=== PATIENT | male | born 1985 | race Hispanic/Latino ===

== ENCOUNTER → 2025-06-02 | Outpatient (CLI) | payer OTHER, SELFPAY ==
--- OUTSIDE RECORDS SUMMARY | 2025-06-02 09:13 | XMS RPT_ITS | CCD ---
Author Organization [facility] Care Team Providers Care Forging Press Operator Name Role Phone JANA CAMARGO, MARCUS Bauer Primary Care Physician [phone] FRANCISCA DE SOUZA, TIEN Fernandez Primary Care Physi nima FRANCISCA DE SOUZA, TIEN Fernandez Attending Un available FRANCISCA ACUÑA-NARA, TIEN Fernandez Primary Care Un available TORSTEN CAMARGO, THADDEUS Attending Unavaila ble FRANCISCA DE SOUZA, TIEN A Primary Care Un available TORSTEN CAMARGO, THADDEUS Attending Unavaila ble FRANCISCA ACUÑA-NARA, TIEN A Primary Care Un available TORSTEN CAMARGO, THADDEUS Attending Unavaila ble FRANCISCA DE SOUZA, TIEN A Primary Care Un available TORSTEN CAMARGO, THADDEUS Attending Unavaila ble FRANCISCA ACUÑA-NARA, TIEN A Primary Care Un available FRANCISCA DE SOUZA, TIEN A Primary Care Un available TORSTEN CAMARGO, THADDEUS Attending Unavaila rubén Medications Current Medications Medication Drug Class(es) Dates Sig (Normalized) Sig (Original) 0.5 ML tirzepatide 15 MG/ML Auto-Injector [Mounjaro] (1 source) Start: 01-08-2025 inject 1 dose by subcutaneous injection every week Mounjaro 7.5 mg/0.5 mL subcutaneous solution Dose : 7.5 mg =, Subcutaneous, qWeek, rotate injection sites, # 2 mL, 3 Refill(s), Pharmacy: [facility], 167, cm, 01/04/25 15:53:00 EST, Height, kg, 01/04/25 15:53:00 EST, Dosing Weight Start Date: 01/08/25 Status: Ordered Quantity: 2.0 Unit: mL Repeat number: 4 3 ML semaglutide 2.68 MG/ML Pen Injector [Ozempic] (2 sources) Start: 10-03-2024 inject 1 dose by subcutaneous injection every week Ozempic 8 mg/3 mL (2 mg dose) subcutaneous solution Dose : 2 mg =, Subcutaneous, qWeek, in the abdomen, thigh, or upper arm, # 3 mL, 4 Refill(s), Pharmacy: [facility], 167, cm, 10/03/24 15:51:00 EST, Height, kg, 10/03/24 15:51:00 EST, Dosing Weight Start Date: 10/03/24 Status: Ordered Quantity: 3.0 Unit: mL Repeat number: 5 acetaminophen 500 mg oral tablet (5 sources) Start: 08-20-2022 acetaminophen 500 mg oral tablet Dose : 1,000 mg = 2 tab(s), Oral, TID, PRN pain or fever, 0 Refill(s) Start Date: 08/20/22 Status: Ordered Repeat number: 1 acyclovir 800 mg oral tablet (1 source) Herpesvirus Nucleoside Analog DNA Polymerase Inhibitor, Herpes Simplex Virus Nucleoside Analog DNA Polymerase Inhibitor, Herpes Zoster Virus Nucleoside Analog DNA Polymerase Inhibitor Start: 09-15-2023 End: 09-25-2023 acyclovir 800 mg oral tablet Dose : 800 mg = 1 tab(s), Oral, TID, X 5 day(s), # 15 tab(s), 1 Refill(s), 09/25/23 4:20:00 PM EDT, Pharmacy: [facility] #[id number], Genital herpes, 167, cm, 09/15/23 15:52:00 EDT, Height, kg, 09/15/23 15:52:00 EDT, Dosing Weight Start Date: 09/15/23 Stop Date: 09/25/23 Status: Ordered betamethasone 0.5 mg/ml / clotrimazole 10 mg/ml topical cream (1 source) Azole Antifungal, Corticosteroid Start: 09-15-2023 End: 10-13-2023 betamethasone-clot rimazole 0.05%-1% topical cream Apply 1 sudha, Topical, BID, for 2 weeks then take 1 week off, may repeat if needed, X 14 day(s), # 45 gram(s), 1 Refill(s), Pharmacy: [facility] #[id number], Cream, 167, cm, 09/15/23 15:52:00 EDT, Height, 75.1, kg, 09/15/23 15:52:00 EDT, Dosing Weight Start Date: 09/15/23 Stop Date: 10/13/23 Status: Ordered DME MISCellaneous (3 sources) Start: 07-04-2024 DME MISCellaneous See Instructions, freestyle clyde 3 sensors 1 sensor every 14 days #2kits for 28 days and 3 refills E11.65., # 2 EA, 3 Refill(s), Pharmacy: [facility], 167, cm, 06/29/24 15:52:00 EDT, Height, 77.31, kg, 06/29/24 15:52:00 EDT, Dosing Weight Start Date: 07/04/24 Status: Ordered Quantity: 2.0 Unit: EA Repeat number: 4 Start: 01-26-2024 DME MISCellane ous See Instructions, freestyle clyde 3 sensors 1 sensor every 14 days #2kits for 28 days and 3 refills E11.65., # 2 EA, 3 Refill(s), Pharmacy: [facility] #[id number], 167, cm, 12/02/23 14:10:00 EST, Height, 78.6, kg, 12/02/23 14:10:00 EST, Dosing Weight Start Date: 01/26/24 Status: Ordered fluconazole 150 mg oral tablet (1 source) Azole Antifungal Start: 09-15-2023 End: 09-21-2023 Diflucan 150 mg oral tablet Dose : 150 mg = 1 tab(s), Oral, Every other day, X 6 day(s), # 3 tab(s), 0 Refill(s), 09/21/23 4:19:00 PM EDT, [facility][id number][facility], cm, 09/15/23 15:52:00 EDT, Height, 75.1, kg, 09/15/23 15:52:00 EDT, Dosing Weight Start Date: 09/15/23 Stop Date: 09/21/23 Status: Ordered fluticasone propionate 0.05 mg/actuat metered dose nasal spray (1 source) Corticosteroid Start: 03-13-2024 End: 09-09-2024 take 50 ug nasal route once daily in the morning Flonase 50 mcg/inh nasal spray 50 mcg Dose = 1 spray(s), Nostril, each, qAM, # 16 gram(s), 5 Refill(s), Pharmacy: [facility], Allergic rhinitis, seasonal, 167, cm, 03/13/24 15:13:00 EDT, Height, kg, 03/13/24 15:13:00 EDT, Dosing Weight Start Date: 03/13/24 Stop Date: 09/09/24 Status: Ordered FreeStyle Lcyde 3+ Sensors (2 sources) Start: 10-23-2024 FreeStyle Libr e 3+ Sensors See Instructions, Place once sensor to the back of the upper arm every 15 days. Use reader or phone sudha for daily blood sugar checks. 1 month supply, # 2 EA, 3 Refill(s), Pharmacy: [facility], 167, cm, 10/13/24 16:34:00 EST, Height, 81.3, kg, 10/13/24 16:34:00 EST, Dosing Weight Start Date: 10/23/24 Status: Ordered Quantity: 2.0 Unit: EA Repeat number: 4 glimepiride 4 mg oral tablet (3 sources) Sulfonylurea Start: 07-15-2023 End: 01-11-2024 Amaryl 4 mg oral tablet Dose : 8 mg = 2 tab(s), Oral, qDay, # 180 tab(s), 1 Refill(s), Pharmacy: [facility] #[id number], Uncontrolled type 2 diabetes mellitus with hyperglycemia, 167, cm, 07/15/23 14:53:00 EDT, Height, kg, 07/15/23 14:53:00 EDT, Dosing Weight Start Date: 07/15/23 Stop Date: 01/11/24 Status: Ordered Start: 03-12-2022 Amaryl 4 mg or al tablet Dose : 4 mg = 1 tab(s), Oral, qDay, # 90 tab(s), 1 Refill(s), Pharmacy: [facility] 168, cm, 03/12/22 14:25:00 EDT, Height, kg, 03/12/22 14:25:00 EDT, Dosing Weight Start Date: 03/12/22 Status: Ordered Start: 11-06-2020 Amaryl 4 mg or al tablet Dose : 4 mg = 1 tab(s), Oral, BID, # 180 tab(s), 3 Refill(s), Pharmacy: [facility], 167, cm, 11/06/20 16:05:00 EST, Height, kg, 11/06/20 16:05:00 EST, Dosing Weight Start Date: 11/06/20 Status: Ordered 3 ml insulin glargine 100 unt/ml pen injector (1 source) Insulin Analog Start: 03-15-2024 End: 06-13-2024 inject 1 dose by subcutaneous injection once daily Lantus Solostar Pen 100 units/mL 3 mL Pen Dose : 20 unit(s) =, Subcutaneous, qDay, rotate injection sites increase insulin by 2 units every 2-3 days until goal blood sugar of 90-150 is consistently reached. Max 80 units., # 2 EA, 2 Refill(s), Pharmacy: [facility], Uncontrolled diabetes mellitus, 167, cm, 03/13/24 15:13:00 EDT, Height, kg, 03/13/24 15:13:00 EDT, Dosing Weight Start Date: 03/15/24 Stop Date: 06/13/24 Status: Ordered insulin isophane, human 70 unt/ml / insulin, regular, human 30 unt/ml injectable suspension (1 source) Insulin Start: 08-25-2023 insulin isophane-insulin regular human recombinant [NovoLIN] 70-30 units/mL subcutaneous suspension Dose : 20 unit(s) =, Subcutaneous, BIDAC, # 10 mL, 1 Refill(s), Pharmacy: [facility] #[id number], 167, cm, 08/17/23 14:10:00 EDT, Height, kg, 08/17/23 14:10:00 EDT, Dosing Weight Start Date: 08/25/23 Status: Ordered 3 ml insulin lispro 50 unt/ml / insulin lispro protamine, human 50 unt/ml pen injector (3 sources) Insulin Analog Start: 10-23-2024 HumaLOG Mix 50 /50 KwikPen 3 mL PEN See Instructions, Inject TID AC - 20 units with breakfast, 20 units with lunch, 25 units with dinner, # 15 mL, 1 Refill(s), PEN, Pharmacy: [facility], 167, cm, 10/13/24 16:34:00 EST, Height, kg, 10/13/24 16:34:00 EST, Dosing Weight Start Date: 10/23/24 Status: Ordered Quantity: 15.0 Unit: mL Repeat number: 2 Start: 03-23-2024 HumaLOG Mix 50 /50 KwikPen 3 mL PEN Dose : 20 unit(s) =, Subcutaneous, TIDAC, # 15 mL, 1 Refill(s), PEN, Pharmacy: [facility], 167, cm, 03/23/24 16:09:00 EDT, Height, kg, 03/23/24 16:09:00 EDT, Dosing Weight Start Date: 03/23/24 Status: Ordered lisinopril 2.5 mg oral tablet (6 sources) Angiotensin Converting Enzyme Inhibitor Start: 06-19-2024 End: 06-14-2025 lisinopril 2.5 mg oral tablet Dose : 2.5 mg = 1 tab(s), Oral, qDay, # 90 tab(s), 3 Refill(s), Pharmacy: [facility], 167, cm, 06/13/24 16:08:00 EDT, Height, kg, 06/13/24 16:08:00 EDT, Dosing Weight Start Date: 06/19/24 Stop Date: 06/14/25 Status: Ordered Quantity: 90.0 Unit: tab(s) Repeat number: 4 Start: 06-16-2023 End: 06-10-2024 lisinopril 2.5 mg oral table t Dose : 2.5 mg = 1 tab(s), Oral, qDay, # 90 tab(s), 3 Refill(s), Pharmacy: [facility] #[id number], 167, cm, 06/16/23 15:26:00 EDT, Height, kg, 06/16/23 15:26:00 EDT, Dosing Weight Start Date: 06/16/23 Stop Date: 06/10/24 Status: Ordered Start: 07-17-2022 lisinopril 2.5 mg oral tablet Dose : 2.5 mg = 1 tab(s), Oral, qDay, # 30 tab(s), 11 Refill(s), Pharmacy: [facility] #[id number], 162.6, cm, 07/17/22 16:35:00 EDT, Height, kg, 07/17/22 16:35:00 EDT, Dosing Weight Start Date: 07/17/22 Status: Ordered Start: 06-04-2021 lisinopril 2.5 mg oral tablet Dose : 2.5 mg = 1 tab(s), Oral, qDay, # 30 tab(s), 11 Refill(s), [facility]acy: [facility] [facility], 167, cm, 06/04/21 16:42:00 EDT, Height, kg, 06/04/21 16:42:00 EDT, Dosing Weight Start Date: 06/04/21 Status: Ordered metFORMIN hydrochloride 1000 mg oral tablet (6 sources) Biguanide Start: 03-17-2024 metFORMIN 1000 mg oral tablet (IR) Dose : 1,000 mg = 1 tab(s), Oral, BID, # 180 tab(s), 3 Refill(s), Pharmacy: [facility], 167, cm, 03/13/24 15:13:00 EDT, Height, kg, 03/13/24 15:13:00 EDT, Dosing Weight Start Date: 03/17/24 Status: Ordered Quantity: 180.0 Unit: tab(s) Repeat number: 4 Start: 06-16-2023 metFORMIN 1000 mg oral tablet (IR) Dose : 1,000 mg = 1 tab(s), Oral, BID, # 180 tab(s), 3 Refill(s), Pharmacy: [facility] #[id number], 167, cm, 06/16/23 15:26:00 EDT, Height, kg, 06/16/23 15:26:00 EDT, Dosing Weight Start Date: 06/16/23 Status: Ordered Start: 07-17-2022 metFORMIN 1000 mg oral tablet (IR) Dose : 1,000 mg = 1 tab(s), Oral, BID, # 180 tab(s), 3 Refill(s), Pharmacy: [facility] #[id number], 162.6, cm, 07/17/22 16:35:00 EDT, Height, kg, 07/17/22 16:35:00 EDT, Dosing Weight Start Date: 07/17/22 Status: Ordered Start: 08-06-2021 metFORMIN 1000 mg oral tablet (IR) Dose : 1,000 mg = 1 tab(s), Oral, BID, # 180 tab(s), 3 Refill(s), [facility], 167, cm, 06/04/21 16:42:00 EDT, Height, kg, 08/06/21 16:34:00 EDT, Dosing Weight Start Date: 08/06/21 Status: Ordered omeprazole 20 mg delayed release oral capsule (4 sources) Proton Pump Inhibitor Start: 01-10-2025 omeprazo le 20 mg oral delayed release capsule Dose : 20 mg = 1 cap(s), Oral, qDay, # 90 cap(s), 3 Refill(s), Pharmacy: [facility], 167, cm, 01/04/25 15:53:00 EST, Height, kg, 01/04/25 15:53:00 EST, Dosing Weight Start Date: 01/10/25 Status: Ordered Quantity: 90.0 Unit: cap(s) Repeat number: 4 Start: 09-20-2024 omeprazole 20 mg oral delayed release tablet Dose : 20 mg = 1 tab(s), Oral, qDay, # 30 tab(s), 3 Refill(s), Pharmacy: [facility], 167, cm, 08/17/24 15:01:00 EDT, Height, kg, 08/17/24 15:01:00 EDT, Dosing Weight Start Date: 09/20/24 Status: Ordered Quantity: 30.0 Unit: tab(s) Repeat number: 4 Start: 01-26-2024 omeprazole 20 mg oral delayed release tablet Dose : 20 mg = 1 tab(s), Oral, qDay, # 30 tab(s), 3 Refill(s), Pharmacy: [facility] #[id number], 167, cm, 12/02/23 14:10:00 EST, Height, kg, 12/02/23 14:10:00 EST, Dosing Weight Start Date: 01/26/24 Status: Ordered Start: 08-17-2023 omeprazole 20 mg oral delayed release tablet Dose : 20 mg = 1 tab(s), Oral, qDay, # 30 tab(s), 3 Refill(s), Pharmacy: [facility] #[id number], 167, cm, 08/17/23 14:10:00 EDT, Height, kg, 08/17/23 14:10:00 EDT, Dosing Weight Start Date: 08/17/23 Status: Ordered pioglitazone 15 mg oral tablet (5 sources) Peroxisome Proliferator Receptor alpha Agonist, Peroxisome Proliferator Receptor gamma Agonist, Thiazolidinedione Start: 08-23-2024 End: 02-19-2025 pioglitazone 15 mg oral tablet Dose : 15 mg = 1 tab(s), Oral, Daily, # 90 tab(s), 1 Refill(s), Pharmacy: [facility], 167, cm, 08/17/24 15:01:00 EDT, Height, kg, 08/17/24 15:01:00 EDT, Dosing Weight Start Date: 08/23/24 Stop Date: 02/19/25 Status: Ordered Quantity: 90.0 Unit: tab(s) Repeat number: 2 Start: 03-09-2024 pioglitazone 1 5 mg oral tablet Dose : 15 mg = 1 tab(s), Oral, Daily, # 30 tab(s), 2 Refill(s), Pharmacy: [facility], 167, cm, 03/09/24 15:38:00 EDT, Height, kg, 03/09/24 15:38:00 EDT, Dosing Weight Start Date: 03/09/24 Status: Ordered Start: 08-06-2022 Actos 30 mg or al tablet Dose : 30 mg = 1 tab(s), Oral, qDay, # 30 tab(s), 11 Refill(s), Pharmacy: [facility] #[id number], 162.6, cm, 08/06/22 15:49:00 EDT, Height, kg, 08/06/22 15:49:00 EDT, Dosing Weight Start Date: 08/06/22 Status: Ordered Start: 01-26-2022 Actos 30 mg or al tablet Dose : 30 mg = 1 tab(s), Oral, qDay, # 30 tab(s), 11 Refill(s), Pharmacy: [facility] 170, cm, 01/18/22 16:15:00 EST, Height, kg, 12/09/21 16:15:00 EST, Dosing Weight Start Date: 01/26/22 Status: Ordered rosuvastatin calcium 20 mg oral tablet (2 sources) HMG-CoA Reductase Inhibitor Start: 11-23-2024 End: 05-22-2025 rosuvastatin 20 mg oral tablet Dose : 20 mg = 1 tab(s), Oral, Daily, # 90 tab(s), 1 Refill(s), Pharmacy: [facility], 167, cm, 10/13/24 16:34:00 EST, Height, kg, 10/13/24 16:34:00 EST, Dosing Weight Start Date: 11/23/24 Stop Date: 05/22/25 Status: Ordered Quantity: 90.0 Unit: tab(s) Repeat number: 2 Start: 03-13-2024 End: 06-11-2024 rosuvastatin 20 mg oral tabl et Dose : 20 mg = 1 tab(s), Oral, Daily, # 90 tab(s), 0 Refill(s), Pharmacy: [facility], HLD (hyperlipidemia), 167, cm, 03/13/24 15:13:00 EDT, Height, kg, 03/13/24 15:13:00 EDT, Dosing Weight Start Date: 03/13/24 Stop Date: 06/11/24 Status: Ordered sildenafil 20 mg oral tablet (1 source) Phosphodiesterase 5 Inhibitor Start: 02-07-2020 sildenafil 20 mg ora l tablet See Instructions, 1 up to 5 tablets at a time daily as needed, # 30 tab(s), 3 Refill(s), Pharmacy: [facility], 168, cm, 02/07/20 16:20:00 EDT, Height, kg, 02/07/20 16:20:00 EDT, Dosing Weight Start Date: 02/07/20 Status: Ordered Vitamin B12 1000 mcg oral tablet (3 sources) Start: 07-26-2024 Vitamin B12 10 00 mcg oral tablet Dose : 1,000 mcg = 1 tab(s), Oral, qDay, # 90 tab(s), 3 Refill(s), Pharmacy: [facility], 167, cm, 06/29/24 15:52:00 EDT, Height, kg, 06/29/24 15:52:00 EDT, Dosing Weight Start Date: 07/26/24 Status: Ordered Quantity: 90.0 Unit: tab(s) Repeat number: 4 Start: 12-02-2023 Vitamin B12 10 00 mcg oral tablet Dose : 1,000 mcg = 1 tab(s), Oral, qDay, # 90 tab(s), 1 Refill(s), Pharmacy: [facility] #[id number], 167, cm, 12/02/23 14:10:00 EST, Height, kg, 12/02/23 14:10:00 EST, Dosing Weight Start Date: 12/02/23 Status: Ordered Vitamin D3 1250 mcg (50,000 intl units) oral capsule (3 sources) Start: 09-13-2024 Vitamin D3 125 0 mcg (50,000 intl units) oral capsule Dose : 1,250 mcg = 1 cap(s), Oral, qWeek, # 12 cap(s), 3 Refill(s), Pharmacy: [facility], 167, cm, 08/17/24 15:01:00 EDT, Height, kg, 08/17/24 15:01:00 EDT, Dosing Weight Start Date: 09/13/24 Status: Ordered Quantity: 12.0 Unit: cap(s) Repeat number: 4 Start: 12-02-2023 Vitamin D3 125 0 mcg (50,000 intl units) oral capsule Dose : 1,250 mcg = 1 cap(s), Oral, qWeek, # 12 cap(s), 1 Refill(s), Pharmacy: [facility] #[id number], 167, cm, 12/02/23 14:10:00 EST, Height, kg, 12/02/23 14:10:00 EST, Dosing Weight Start Date: 12/02/23 Status: Ordered Completed/Discontinued Medications Medication Drug Class(es) Dates Sig (Normalized) Sig (Original) 0.5 ml dulaglutide 3 mg/ml auto-injector (3 sources) GLP-1 Receptor Agonist Start: 03-09-2024 inject 0.5 mL by subcutaneous injection every week Trulicity Pen 1.5 mg/0.5 mL subcutaneous solution Dose : 1.5 mg = 0.5 mL, Subcutaneous, qWeek, rotate injection sites, # 2 mL, 2 Refill(s), Pharmacy: [facility], 167, cm, 03/09/24 15:38:00 EDT, Height, kg, 03/09/24 15:38:00 EDT, Dosing Weight Start Date: 03/09/24 Status: Ordered Start: 05-14-2022 inject 1 dose by sub cutaneous injection every week Trulicity Pen 4.5 mg/0.5 mL subcutaneous solution Dose : 0.5 mL =, Subcutaneous, qWeek, rotate injection sites, # 2 mL, 6 Refill(s), 0.5 mL/Pen, [facility], 168, cm, 05/14/22 15:46:00 EDT, Height Start Date: 05/14/22 Status: Ordered Start: 09-08-2021 Trulicity Pen 1.5 mg/0.5 mL subcutaneous solution 1, Subcutaneous, , 1 dose every ., # 13 EA, 4 Refill(s) Start Date: 09/08/21 Status: Ordered Problems Problem Classification Problem Date Documented Date Episodic/Chronic Diabetes mellitus without complication (14 sources) Diabetes mellitus; Translations: [Type 2 diabetes mellitus] Onset: 09-15-2023 02-03-2021 Chronic Disorders of lipid metabolism (4 sources) Hyperlipidemia 04-12-2023 Chronic Gastritis and duodenitis (5 sources) Gastritis 03-12-2022 Episodic Inflammatory conditions of male genital organs (6 sources) Balanitis 12-31-2020 Chronic Miscellaneous mental health disorders (2 sources) Premature ejaculation 06-29-2024 Chronic Nutritional deficiencies (4 sources) Vitamin D deficiency 04-12-2023 Chronic Other liver diseases (5 sources) ALT (SGPT) level raised 03-12-2022 Episodic Other upper respiratory disease (3 sources) Seasonal allergic rhinitis 03-13-2024 Chronic Skin and subcutaneous tissue infections (3 sources) Cellulitis 03-09-2024 Episodic Thyroid disorders (5 sources) Disorder of thyroid gland 08-06-2022 Episodic Viral infection (6 sources) Genital herpes simplex 12-31-2020 Chronic Results Test Name Value Interpretation Reference Range [facility] Cortisol Saliva 0.202 UG/DL Normal [facility] Comment on above: Result Comment: This test was developed and its performance characteristics determined by [facility]. It has not been cleared or approved by the Food and Drug Administration. Reference Range: Children and Adults: 8:00a.m.: 0.025 - 0.600 Noon: <0.010 - 0.330 4:00p.m.: 0.010 - 0.200 Bedtime (9:00p.m.-Midnight): <0.010 - 0.090 Performed At: [facility] [address] [place] [address] [id number] Glen Ren MD Ph:[phone] Performed By: #### 5 [id number] #### [address] [address] .Auto Diffon 11-20-2024 Basophil, Absolute 0.0 10 3/mcL Normal 0.0-0.2 [facility] Comment on above: Performed By: #### G FR, CBC, LIPID, VIDH, CMP, TSH, ANEU, ADIFF #### [address] [address] Basophils/100 WBC (Bld) 0.5 % Normal 0.0-2.5 [facility] Comment on above: Performed By: #### G FR, CBC, LIPID, VIDH, CMP, TSH, ANEU, ADIFF #### [address] [address] Eosinophil, Absolute 0.1 10 3/mcL Normal 0.0-0.7 [facility] Comment on above: Performed By: #### G FR, CBC, LIPID, VIDH, CMP, TSH, ANEU, ADIFF #### [address] [address] Eosinophils/100 WBC (Bld) 0.7 % Normal 0.0-7.0 [facility] Comment on above: Performed By: #### G FR, CBC, LIPID, VIDH, CMP, TSH, ANEU, ADIFF #### [address] [address] Lymphocyte, Absolute 2.6 10 3/mcL Normal 0.9-4.3 [facility] Comment on above: Performed By: #### G FR, CBC, LIPID, VIDH, CMP, TSH, ANEU, ADIFF #### [address] [address] Lymphocytes/100 WBC (Bld) 34.8 % Normal 20.0-40.0 [facility] Comment on above: Performed By: #### G FR, CBC, LIPID, VIDH, CMP, TSH, ANEU, ADIFF #### [address] [address] Monocyte, Absolute 0.6 10 3/mcL Normal 0.1-1.4 [facility] Comment on above: Performed By: #### G FR, CBC, LIPID, VIDH, CMP, TSH, ANEU, ADIFF #### [address] [address] Monocytes/100 WBC (Bld) 7.9 % Normal 2.0-13.0 [facility] Comment on above: Performed By: #### G FR, CBC, LIPID, VIDH, CMP, TSH, ANEU, ADIFF #### [address] [address] Neutrophils/100 WBC (Bld) 56.1 % Normal 50.0-75.0 [facility] Comment on above: Performed By: #### G FR, CBC, LIPID, VIDH, CMP, TSH, ANEU, ADIFF #### [address] [address] .GFRon 11-20-2024 GFR 119 ml/min/1.73sqm Normal [facility] Comment on above: Result Comment: GFR Population mean for , Non- Americans Ages 20-29 = 116 mL/min/1.73 sq.m. Ages 30-39 = 107 mL/min/1.73 sq.m. Ages 40-49 = 99 mL/min/1.73 sq.m. Ages 50-59 = 93 mL/min/1.73 sq.m. Ages 60-69 = 85 mL/min/1.73 sq.m. Ages 70+ = 75 mL/min/1.73 sq.m. Chronic Kidney Disease: Less than 60 mL/min/1.73 square meters End Stage Renal Disease: Less than 15 mL/min/1.73 square meters Performed By: #### G FR, CBC, LIPID, VIDH, CMP, TSH, ANEU, ADIFF #### [address] [address] GFR Non- 98 ml/min/1.73sqm Normal [facility] Comment on above: Result Comment: GFR Population mean for , Non- Americans Ages 20-29 = 116 mL/min/1.73 sq.m. Ages 30-39 = 107 mL/min/1.73 sq.m. Ages 40-49 = 99 mL/min/1.73 sq.m. Ages 50-59 = 93 mL/min/1.73 sq.m. Ages 60-69 = 85 mL/min/1.73 sq.m. Ages 70+ = 75 mL/min/1.73 sq.m. Chronic Kidney Disease: Less than 60 mL/min/1.73 square meters End Stage Renal Disease: Less than 15 mL/min/1.73 square meters Performed By: #### G FR, CBC, LIPID, VIDH, CMP, TSH, ANEU, ADIFF #### [address] [address] .NEUABSon 11-20-2024 Neutrophil, Absolute 4.1 10 3/mcL Normal 2.3-8.1 [facility] Comment on above: Performed By: #### G FR, CBC, LIPID, VIDH, CMP, TSH, ANEU, ADIFF #### [address] [address] CBCon 11-20-2024 Erythrocyte distribution width (RBC) [Ratio] 13.0 % Normal 11.5-15.5 [facility] Comment on above: Performed By: #### G FR, CBC, LIPID, VIDH, CMP, TSH, ANEU, ADIFF #### [address] [address] Hematocrit (Bld) [Volume fraction] 50.5 % Normal 40.0-52.0 [facility] Comment on above: Performed By: #### G FR, CBC, LIPID, VIDH, CMP, TSH, ANEU, ADIFF #### [place] [address] Hgb 17.8 G/dL High 13.0-17.5 [facility] Comment on above: Performed By: #### G FR, CBC, LIPID, VIDH, CMP, TSH, ANEU, ADIFF #### [place] [address] MCH (RBC) [Entitic mass] 31.7 pg Normal 27.0-33.0 [facility] Comment on above: Performed By: #### G FR, CBC, LIPID, VIDH, CMP, TSH, ANEU, ADIFF #### [place] [address] MCHC 35.3 G/dL Normal 32.0-36.0 [facility] Comment on above: Performed By: #### G FR, CBC, LIPID, VIDH, CMP, TSH, ANEU, ADIFF #### [place] [address] MCV (RBC) [Entitic vol] 89.6 fL Normal 81.0-100.0 [facility] Comment on above: Performed By: #### G FR, CBC, LIPID, VIDH, CMP, TSH, ANEU, ADIFF #### [place] [address] Platelet 166 10 3/mcL Normal 150-450 [facility] Comment on above: Performed By: #### G FR, CBC, LIPID, VIDH, CMP, TSH, ANEU, ADIFF #### [place] [address] Platelet mean volume (Bld) [Entitic vol] 8.7 fL Normal 6.4-10.5 [facility] Comment on above: Performed By: #### G FR, CBC, LIPID, VIDH, CMP, TSH, ANEU, ADIFF #### [place] [address] RBC 5.63 10 6/mcL Normal 4.50-6.00 [facility] Comment on above: Performed By: #### G FR, CBC, LIPID, VIDH, CMP, TSH, ANEU, ADIFF #### [address] [address] WBC 7.4 10 3/mcL Normal 4.5-10.8 [facility] Comment on above: Performed By: #### G FR, CBC, LIPID, VIDH, CMP, TSH, ANEU, ADIFF #### [address] [address] CMPon 11-20-2024 Albumin Level 4.3 G/dL Normal 3.5-5.0 [facility] Comment on above: Performed By: #### G FR, CBC, LIPID, VIDH, CMP, TSH, ANEU, ADIFF #### [address] [address] Albumin/Globulin [Mass ratio] 1.4 {ratio} Normal 1.1-2.5 [facility] Comment on above: Performed By: #### G FR, CBC, LIPID, VIDH, CMP, TSH, ANEU, ADIFF #### [address] [address] ALP [Catalytic activity/Vol] 81 U/L Normal 40-135 [facility] Comment on above: Performed By: #### G FR, CBC, LIPID, VIDH, CMP, TSH, ANEU, ADIFF #### [address] [address] ALT [Catalytic activity/Vol] 49 U/L Normal 16-63 [facility] Comment on above: Performed By: #### G FR, CBC, LIPID, VIDH, CMP, TSH, ANEU, ADIFF #### [address] [address] AST [Catalytic activity/Vol] 20 U/L Normal 10-40 [facility] Comment on above: Performed By: #### G FR, CBC, LIPID, VIDH, CMP, TSH, ANEU, ADIFF #### [address] [address] Bili Total 0.8 mg/dL Normal 0.2-1.0 [facility] Comment on above: Result Comment: Use of this assay is not recommended for patients undergoing treatment with eltrombopag due to the potential for falsely elevated results. Performed By: #### G FR, CBC, LIPID, VIDH, CMP, TSH, ANEU, ADIFF #### [address] [address] BUN/Creatinine Ratio 20 ratio Normal 7-27 [facility] Comment on above: Performed By: #### G FR, CBC, LIPID, VIDH, CMP, TSH, ANEU, ADIFF #### [address] [address] Calcium [Mass/Vol] 9.7 mg/dL Normal 8.4-10.2 [facility] Comment on above: Performed By: #### G FR, CBC, LIPID, VIDH, CMP, TSH, ANEU, ADIFF #### [address] [address] Chloride [Moles/Vol] 104 mmol/L Normal 98-107 [facility] Comment on above: Performed By: #### G FR, CBC, LIPID, VIDH, CMP, TSH, ANEU, ADIFF #### [address] [address] CO2 [Moles/Vol] 31 mmol/L High 22-29 [facility] Comment on above: Performed By: #### G FR, CBC, LIPID, VIDH, CMP, TSH, ANEU, ADIFF #### [address] [address] Creatinine [Mass/Vol] 0.86 mg/dL Normal 0.70-1.30 [facility] Comment on above: Result Comment: Test ing performed on Siemens Dimension EXL analyzer using a modified kinetic Nayeli technique. Performed By: #### G FR, CBC, LIPID, VIDH, CMP, TSH, ANEU, ADIFF #### [address] [address] Electrolyte Balance 8.0 mEq/L Normal 4.0-15.0 [facility] Comment on above: Performed By: #### G FR, CBC, LIPID, VIDH, CMP, TSH, ANEU, ADIFF #### [address] [address] Globulin 3.1 G/dL Normal [facility] Comment on above: Performed By: #### G FR, CBC, LIPID, VIDH, CMP, TSH, ANEU, ADIFF #### [address] [address] Glucose [Mass/Vol] 195 mg/dL High 70-105 [facility] Comment on above: Performed By: #### G FR, CBC, LIPID, VIDH, CMP, TSH, ANEU, ADIFF #### [address] [address] Potassium [Moles/Vol] 4.6 mmol/L Normal 3.5-5.1 [facility] Comment on above: Performed By: #### G FR, CBC, LIPID, VIDH, CMP, TSH, ANEU, ADIFF #### [address] [address] Sodium [Moles/Vol] 143 mmol/L Normal 136-145 [facility] Comment on above: Performed By: #### G FR, CBC, LIPID, VIDH, CMP, TSH, ANEU, ADIFF #### [address] [address] Total Protein 7.4 G/dL Normal 6.4-8.2 [facility] Comment on above: Performed By: #### G FR, CBC, LIPID, VIDH, CMP, TSH, ANEU, ADIFF #### [address] [address] Urea nitrogen [Mass/Vol] 17 mg/dL Normal 7-18 [facility] Comment on above: Performed By: #### G FR, CBC, LIPID, VIDH, CMP, TSH, ANEU, ADIFF #### [address] [address] LABORATORYOrdered By: SYSTEM SYSTEM on 11-20-2024 25-hydroxyvitamin D3 [Mass/Vol] 113.1 ng/mL Invalid Interpretation Code AO ADM SS Comment on above: Interpretive Data: I nterpretive Values Based on Total 25(OH) Vitamin D: Deficient <20 ng/mL Insufficient 20 - <30 ng/mL Sufficient 30-100 ng/mL Albumin BCP dye [Mass/Vol] 4.3 G/dL Normal 3.5 - 5.0 G/dL AO ADM SS Albumin/Globulin [Mass ratio] 1.4 {ratio} Normal 1.1 - 2.5 ratio AO ADM SS ALP [Catalytic activity/Vol] 81 U/L Normal 40 - 135 U/L AO ADM SS ALT With P-5'-P [Catalytic activity/Vol] 49 U/L Normal 16 - 63 U/L AO ADM SS AST With P-5'-P [Catalytic activity/Vol] 20 U/L Normal 10 - 40 U/L AO ADM SS Basophils (Bld) [#/Vol] 0.0 103/mcL Normal 0.0 - 0.2 10^3/mcL AO Workflow SS Basophils/100 WBC (Bld) 0.5 % Normal 0.0 - 2.5 % AO Workflow SS Bilirubin [Mass/Vol] 0.8 mg/dL Normal 0.2 - 1 .0 mg/dL AO ADM SS Comment on above: Interpretive Data: U se of this assay is not recommended for patients undergoing treatment with eltrombopag due to the potential for falsely elevated results. Calcium [Mass/Vol] 9.7 mg/dL Normal 8.4 - 10. 2 mg/dL AO ADM SS Chloride [Moles/Vol] 104 mmol/L Normal 98 - 10 7 mmol/L AO ADM SS CO2 [Moles/Vol] 31 mmol/L High 22 - 29 mmol/L AO ADM SS Creatinine [Mass/Vol] 0.86 mg/dL Normal 0.70 - 1.30 mg/dL AO ADM SS Comment on above: Interpretive Data: T esting performed on [employer] Dimension EXL analyzer using a modified kinetic Nayeli technique. Electrolyte Balance 8.0 mEq/L Normal 4.0 - 15 .0 mEq/L AO ADM SS Eosinophil, Absolute 0.1 103/mcL Normal 0.0 - 0 .7 10^3/mcL AO Workflow SS Eosinophils/100 WBC (Bld) 0.7 % Normal 0.0 - 7.0 % AO Workflow SS Erythrocyte distribution width (RBC) [Ratio] 13.0 % Normal 11.5 - 15.5 % AO Workflow SS GFR/1.73 sq M.predicted among blacks MDRD (S/P/Bld) [Vol rate/Area] 119 ml/min/1.73sqm Invalid Interpretation Code AO Chemistry S Comment on above: Interpretive Data: GFR Population mean for , Non- Americans Ages 20-29 = 116 mL/min/1.73 sq.m. Ages 30-39 = 107 mL/min/1.73 sq.m. Ages 40-49 = 99 mL/min/1.73 sq.m. Ages 50-59 = 93 mL/min/1.73 sq.m. Ages 60-69 = 85 mL/min/1.73 sq.m. Ages 70+ = 75 mL/min/1.73 sq.m. Chronic Kidney Disease: Less than 60 mL/min/1.73 square meters End Stage Renal Disease: Less than 15 mL/min/1.73 square meters GFR/1.73 sq M.predicted among non-blacks MDRD (S/P/Bld) [Vol rate/Area] 98 ml/min/1.73sqm Invalid Interpretation Code AO Chemistry S Comment on above: Interpretive Data: GFR Population mean for , Non- Americans Ages 20-29 = 116 mL/min/1.73 sq.m. Ages 30-39 = 107 mL/min/1.73 sq.m. Ages 40-49 = 99 mL/min/1.73 sq.m. Ages 50-59 = 93 mL/min/1.73 sq.m. Ages 60-69 = 85 mL/min/1.73 sq.m. Ages 70+ = 75 mL/min/1.73 sq.m. Chronic Kidney Disease: Less than 60 mL/min/1.73 square meters End Stage Renal Disease: Less than 15 mL/min/1.73 square meters Globulin 3.1 G/dL Invalid Interpretation Code AO ADM SS Glucose [Mass/Vol] 195 mg/dL High 70 - 105 mg/dL AO ADM SS Hematocrit (Bld) [Volume fraction] 50.5 % Normal 40.0 - 52.0 % AO Workflow SS Hemoglobin (Bld) [Mass/Vol] 17.8 G/dL High 13.0 - 17.5 G/dL AO Workflow SS Lymphocytes (Bld) [#/Vol] 2.6 103/mcL Normal 0.9 - 4.3 10^3/mcL AO Workflow SS Lymphocytes/100 WBC (Bld) 34.8 % Normal 20.0 - 40.0 % AO Workflow SS MCH (RBC) [Entitic mass] 31.7 pg Normal 27.0 - 33.0 pg AO Workflow SS MCHC 35.3 G/dL Normal 32.0 - 36.0 G/dL AO Workflow SS MCV (RBC) [Entitic vol] 89.6 fL Normal 81.0 - 100.0 fL AO Workflow SS Monocytes (Bld) [#/Vol] 0.6 103/mcL Normal 0.1 - 1.4 10^3/mcL AO Workflow SS Monocytes/100 WBC (Bld) 7.9 % Normal 2.0 - 13.0 % AO Workflow SS Neutrophils (Bld) [#/Vol] 4.1 103/mcL Normal 2.3 - 8.1 10^3/mcL AO Workflow SS Neutrophils/100 WBC (Bld) 56.1 % Normal 50.0 - 75.0 % AO Workflow SS Platelet mean volume (Bld) [Entitic vol] 8.7 fL Normal 6.4 - 10.5 fL AO Workflow SS Platelets (Bld) [#/Vol] 166 103/mcL Normal 150 - 450 10^3/mcL AO Workflow SS Potassium [Moles/Vol] 4.6 mmol/L Normal 3.5 - 5.1 mmol/L AO ADM SS Protein [Mass/Vol] 7.4 G/dL Normal 6.4 - 8.2 G/dL AO ADM SS RBC (Bld) [#/Vol] 5.63 106/mcL Normal 4.50 - 6.0 0 10^6/mcL AO Workflow SS Sodium [Moles/Vol] 143 mmol/L Normal 136 - 145 mmol/L AO ADM SS TSH Qn 0.77 m[IU]/L Normal 0.36 - 3.74 mcIU/mL AO ADM SS Urea nitrogen [Mass/Vol] 17 mg/dL Normal 7 - 18 mg/dL AO ADM SS Urea nitrogen/Creatinine [Mass ratio] 20 ratio Normal 7 - 27 ratio AO ADM SS WBC (Bld) [#/Vol] 7.4 103/mcL Normal 4.5 - 10.8 10^3/mcL AO Workflow SS LABORATORYOrdered By: Pernell Rosario on 11-20-2024 Cholesterol [Mass/Vol] 189 mg/dL Normal 0 - 200 mg/dL AO ADM SS Comment on above: Interpretive Data: C holesterol Reference Interval: Less than 200 Desirable 200-239 Borderline high risk 240 and above High risk Cholesterol in HDL [Mass/Vol] 43 mg/dL Normal 40 - 60 mg/dL AO ADM SS Cholesterol in LDL [Mass/Vol] 113 mg/dL Normal 0 - 130 mg/dL AO ADM SS Triglyceride [Mass/Vol] 164 mg/dL High 0 - 150 mg/dL AO ADM SS Comment on above: Interpretive Data: T riglyceride Reference Interval: Less than 150 Normal 150-199 Borderline high risk 200-499 High risk 500 or higher Very high risk LIPIDon 11-20-2024 Cholesterol [Mass/Vol] 189 mg/dL Normal 0-200 [facility] Comment on above: Result Comment: Chol esterol Reference Interval: Less than 200 Desirable 200-239 Borderline high risk 240 and above High risk Performed By: #### G FR, CBC, LIPID, VIDH, CMP, TSH, ANEU, ADIFF #### [address] [address] Cholesterol in HDL [Mass/Vol] 43 mg/dL Normal 40-60 [facility] Comment on above: Performed By: #### G FR, CBC, LIPID, VIDH, CMP, TSH, ANEU, ADIFF #### [address] [address] Cholesterol in LDL [Mass/Vol] 113 mg/dL Normal 0-130 [facility] Comment on above: Performed By: #### G FR, CBC, LIPID, VIDH, CMP, TSH, ANEU, ADIFF #### [address] [address] Triglyceride [Mass/Vol] 164 mg/dL High 0-150 [facility] Comment on above: Result Comment: Trig lyceride Reference Interval: Less than 150 Normal 150-199 Borderline high risk 200-499 High risk 500 or higher Very high risk Performed By: #### G FR, CBC, LIPID, VIDH, CMP, TSH, ANEU, ADIFF #### [place] [id number] TSHon 11-20-2024 TSH Qn 0.77 m[IU]/L Normal 0.36-3.74 [facility] Comment on above: Performed By: #### G FR, CBC, LIPID, VIDH, CMP, TSH, ANEU, ADIFF #### [place] [address] VIDHon 11-20-2024 Vit. D 25-Hydroxy 113.1 ng/mL Normal [facility] Comment on above: Result Comment: Inte rpretive Values Based on Total 25(OH) Vitamin D: Deficient <20 ng/mL Insufficient 20 - <30 ng/mL Sufficient 30-100 ng/mL Performed By: #### G FR, CBC, LIPID, VIDH, CMP, TSH, ANEU, ADIFF #### [place] [address] LABORATORYOrdered By: SYSTEM SYSTEM on 03-25-2024 TPO Ab IA Qn 33 unit/mL Normal 0 - 60 unit/mL AH ADM SS Comment on above: Interpretive Data: * *Note - New Reference Range in effect 20 aTPOon 03-25-2024 anti-Thyroid Peroxidase 33 units/ml Normal 0-60 [facility] ([place]) Comment on above: Result Comment: No te - New Reference Range in effect 20 Performed By: #### V IDH, CBC, GFR, ANEU, TSH, CMP, ADIFF, LIPID #### [place] [id number] ESTGENon 03-22-2024 Estradiol 33.4 pg/mL Normal 7.6-42.6 [facility] ([place]) Comment on above: Result Comment: Brandon BUI methodology Performed At: [facility] [address] [id number] Ney Trevizo MD Ph:[phone] Performed At: [facility] [address] [id number] Sandra Romero PhD Ph:[phone] Performed By: #### V IDH, CBC, GFR, ANEU, TSH, CMP, ADIFF, LIPID #### [address] [address] Estrone 78 pg/mL Normal 0-174 [facility] ([place]) Comment on above: Performed By: #### V IDH, CBC, GFR, ANEU, TSH, CMP, ADIFF, LIPID #### [address] [address] .GFRon 03-18-2024 GFR 129 ml/min/1.73sqm Normal [facility] ([place]) Comment on above: Result Comment: GFR Population mean for , Non- Americans Ages 20-29 = 116 mL/min/1.73 sq.m. Ages 30-39 = 107 mL/min/1.73 sq.m. Ages 40-49 = 99 mL/min/1.73 sq.m. Ages 50-59 = 93 mL/min/1.73 sq.m. Ages 60-69 = 85 mL/min/1.73 sq.m. Ages 70+ = 75 mL/min/1.73 sq.m. Chronic Kidney Disease: Less than 60 mL/min/1.73 square meters End Stage Renal Disease: Less than 15 mL/min/1.73 square meters Performed By: #### V IDH, CBC, GFR, ANEU, TSH, CMP, ADIFF, LIPID #### [address] [address] GFR Non- 106 ml/min/1.73sqm Normal [facility] ([place]) Comment on above: Result Comment: GFR Population mean for , Non- Americans Ages 20-29 = 116 mL/min/1.73 sq.m. Ages 30-39 = 107 mL/min/1.73 sq.m. Ages 40-49 = 99 mL/min/1.73 sq.m. Ages 50-59 = 93 mL/min/1.73 sq.m. Ages 60-69 = 85 mL/min/1.73 sq.m. Ages 70+ = 75 mL/min/1.73 sq.m. Chronic Kidney Disease: Less than 60 mL/min/1.73 square meters End Stage Renal Disease: Less than 15 mL/min/1.73 square meters Performed By: #### V IDH, CBC, GFR, ANEU, TSH, CMP, ADIFF, LIPID #### [address] [address] A1Con 03-18-2024 HbA1c (Bld) [Mass fraction] 9.1 % High 4.3-6.4 [facility] ([place]) Comment on above: Performed By: #### V IDH, CBC, GFR, ANEU, TSH, CMP, ADIFF, LIPID #### [address] [address] CMPon 03-18-2024 Albumin Level 4.3 G/dL Normal 3.5-5.0 [facility] ([place]) Comment on above: Performed By: #### V IDH, CBC, GFR, ANEU, TSH, CMP, ADIFF, LIPID #### [address] [address] Albumin/Globulin [Mass ratio] 1.4 {ratio} Normal 1.1-2.5 [facility] ([place]) Comment on above: Performed By: #### V IDH, CBC, GFR, ANEU, TSH, CMP, ADIFF, LIPID #### [address] [address] ALP [Catalytic activity/Vol] 76 U/L Normal 40-135 [facility] ([place]) Comment on above: Performed By: #### V IDH, CBC, GFR, ANEU, TSH, CMP, ADIFF, LIPID #### [address] [address] ALT [Catalytic activity/Vol] 87 U/L High 16-63 [facility] ([place]) Comment on above: Performed By: #### V IDH, CBC, GFR, ANEU, TSH, CMP, ADIFF, LIPID #### [address] [address] AST [Catalytic activity/Vol] 32 U/L Normal 10-40 [facility] ([place]) Comment on above: Performed By: #### V IDH, CBC, GFR, ANEU, TSH, CMP, ADIFF, LIPID #### [address] [address] Bili Total 0.9 mg/dL Normal 0.2-1.0 [facility] ([place]) Comment on above: Result Comment: Use of this assay is not recommended for patients undergoing treatment with eltrombopag due to the potential for falsely elevated results. Performed By: #### V IDH, CBC, GFR, ANEU, TSH, CMP, ADIFF, LIPID #### [address] [address] BUN/Creatinine Ratio 17 ratio Normal 7-27 [facility] ([place]) Comment on above: Performed By: #### V IDH, CBC, GFR, ANEU, TSH, CMP, ADIFF, LIPID #### [address] [address] Calcium [Mass/Vol] 9.1 mg/dL Normal 8.4-10.2 [facility] ([place]) Comment on above: Performed By: #### V IDH, CBC, GFR, ANEU, TSH, CMP, ADIFF, LIPID #### [address] [address] Chloride [Moles/Vol] 103 mmol/L Normal 98-107 [facility] ([place]) Comment on above: Performed By: #### V IDH, CBC, GFR, ANEU, TSH, CMP, ADIFF, LIPID #### [address] [address] CO2 [Moles/Vol] 29 mmol/L Normal 22-29 [facility] ([place]) Comment on above: Performed By: #### V IDH, CBC, GFR, ANEU, TSH, CMP, ADIFF, LIPID #### [address] [address] Creatinine [Mass/Vol] 0.81 mg/dL Normal 0.70-1.30 [facility] ([place]) Comment on above: Performed By: #### V IDH, CBC, GFR, ANEU, TSH, CMP, ADIFF, LIPID #### [address] [address] Electrolyte Balance 10.0 mEq/L Normal 4.0-15.0 [facility] ([place]) Comment on above: Performed By: #### V IDH, CBC, GFR, ANEU, TSH, CMP, ADIFF, LIPID #### [address] [address] Globulin 3.1 G/dL Normal [facility] ([place]) Comment on above: Performed By: #### V IDH, CBC, GFR, ANEU, TSH, CMP, ADIFF, LIPID #### [address] [address] Glucose [Mass/Vol] 180 mg/dL High 70-105 [facility] ([place]) Comment on above: Performed By: #### V IDH, CBC, GFR, ANEU, TSH, CMP, ADIFF, LIPID #### [address] [address] Potassium [Moles/Vol] 4.2 mmol/L Normal 3.5-5.1 [facility] ([place]) Comment on above: Performed By: #### V IDH, CBC, GFR, ANEU, TSH, CMP, ADIFF, LIPID #### [address] [address] Sodium [Moles/Vol] 142 mmol/L Normal 136-145 [facility] ([place]) Comment on above: Performed By: #### V IDH, CBC, GFR, ANEU, TSH, CMP, ADIFF, LIPID #### [address] [address] Total Protein 7.4 G/dL Normal 6.4-8.2 [facility] ([place]) Comment on above: Performed By: #### V IDH, CBC, GFR, ANEU, TSH, CMP, ADIFF, LIPID #### [address] [address] Urea nitrogen [Mass/Vol] 14 mg/dL Normal 7-18 [facility] ([place]) Comment on above: Performed By: #### V IDH, CBC, GFR, ANEU, TSH, CMP, ADIFF, LIPID #### [address] [address] LHon 03-18-2024 LH 2.2 mIU/mL Normal 1.5-9.3 [facility] ([place]) Comment on above: Result Comment: No te - New Reference Range in effect 20Adult Female LH Reference Ranges: Follicular phase 1.9 - 12.5 mIU/mL Midcycle phase 8.7 - 76.3 mIU/mL Luteal phase 0.5 - 16.9 mIU/mL Post menopausal 5.0 - 55.2 mIU/mL Performed By: #### V IDH, CBC, GFR, ANEU, TSH, CMP, ADIFF, LIPID #### [address] [address] LIPIDon 03-18-2024 Cholesterol [Mass/Vol] 170 mg/dL Normal 0-200 [facility] ([place]) Comment on above: Result Comment: Chol esterol Reference Interval: Less than 200 Desirable 200-239 Borderline high risk 240 and above High risk Performed By: #### V IDH, CBC, GFR, ANEU, TSH, CMP, ADIFF, LIPID #### [address] [address] Cholesterol in HDL [Mass/Vol] 40 mg/dL Normal 40-60 [facility] ([place]) Comment on above: Performed By: #### V IDH, CBC, GFR, ANEU, TSH, CMP, ADIFF, LIPID #### [address] [address] Cholesterol in LDL [Mass/Vol] 92 mg/dL Normal 0-130 [facility] ([place]) Comment on above: Performed By: #### V IDH, CBC, GFR, ANEU, TSH, CMP, ADIFF, LIPID #### [address] [address] Triglyceride [Mass/Vol] 191 mg/dL High 0-150 [facility] ([place]) Comment on above: Result Comment: Trig lyceride Reference Interval: Less than 150 Normal 150-199 Borderline high risk 200-499 High risk 500 or higher Very high risk Performed By: #### V IDH, CBC, GFR, ANEU, TSH, CMP, ADIFF, LIPID #### [address] [address] PSAon 03-18-2024 Prostate Specific Antigen 0.67 ng/mL Normal 0.00-4.00 [facility] ([place]) Comment on above: Performed By: #### V IDH, CBC, GFR, ANEU, TSH, CMP, ADIFF, LIPID #### [address] [address] TESTOon 03-18-2024 Testosterone Lvl 653.07 ng/dL Normal 123.06-813. 8 6 [facility] ([place]) Comment on above: Result Comment: Norm al Reference Ranges for Females: Female Premenopause Age 21-60 9.01-47.94 ng/dL Female Postmenopause Age 45-89 <7.00-45.62 ng/dL Performed By: #### V IDH, CBC, GFR, ANEU, TSH, CMP, ADIFF, LIPID #### [address] [address] VIDHon 03-18-2024 Vit. D 25-Hydroxy 44.0 ng/mL Normal [facility] ([place]) Comment on above: Result Comment: Inte rpretive Values Based on Total 25(OH) Vitamin D: Deficient <20 ng/mL Insufficient 20 - <30 ng/mL Sufficient 30-100 ng/mL Performed By: #### V IDH, CBC, GFR, ANEU, TSH, CMP, ADIFF, LIPID #### [address] [address] .Auto Diffon 09-30-2023 Basophil, Absolute 0.0 10 3/mcL Normal 0.0-0.2 [facility] ([place]) Comment on above: Performed By: #### V IDH, CBC, GFR, ANEU, TSH, CMP, ADIFF, LIPID #### [address] [address] Basophils/100 WBC (Bld) 0.5 % Normal 0.0-2.5 [facility] ([place]) Comment on above: Performed By: #### V IDH, CBC, GFR, ANEU, TSH, CMP, ADIFF, LIPID #### [address] [address] Eosinophil, Absolute 0.1 10 3/mcL Normal 0.0-0.4 [facility] ([place]) Comment on above: Performed By: #### V IDH, CBC, GFR, ANEU, TSH, CMP, ADIFF, LIPID #### [address] [address] Eosinophils/100 WBC (Bld) 1.4 % Normal 0.0-7.0 [facility] ([place]) Comment on above: Performed By: #### V IDH, CBC, GFR, ANEU, TSH, CMP, ADIFF, LIPID #### [address] [address] Lymphocyte, Absolute 4.2 10 3/mcL High 0.8-3.9 [facility] ([place]) Comment on above: Performed By: #### V IDH, CBC, GFR, ANEU, TSH, CMP, ADIFF, LIPID #### [address] [address] Lymphocytes/100 WBC (Bld) 50.1 % High 10.0-50.0 [facility] ([place]) Comment on above: Performed By: #### V IDH, CBC, GFR, ANEU, TSH, CMP, ADIFF, LIPID #### [address] [address] Monocyte, Absolute 0.8 10 3/mcL Normal 0.2-1.0 [facility] ([place]) Comment on above: Performed By: #### V IDH, CBC, GFR, ANEU, TSH, CMP, ADIFF, LIPID #### [address] [address] Monocytes/100 WBC (Bld) 9.4 % Normal 1.7-13.0 [facility] ([place]) Comment on above: Performed By: #### V IDH, CBC, GFR, ANEU, TSH, CMP, ADIFF, LIPID #### [address] [address] Neutrophils/100 WBC (Bld) 38.6 % Normal 37.0-80.0 [facility] ([place]) Comment on above: Performed By: #### V IDH, CBC, GFR, ANEU, TSH, CMP, ADIFF, LIPID #### [address] [address] .GFRon 09-30-2023 GFR Non- 116 ml/min/1.73sqm Normal [facility] ([place]) Comment on above: Result Comment: GFR Population mean for , Non- Americans Ages 20-29 = 116 mL/min/1.73 sq.m. Ages 30-39 = 107 mL/min/1.73 sq.m. Ages 40-49 = 99 mL/min/1.73 sq.m. Ages 50-59 = 93 mL/min/1.73 sq.m. Ages 60-69 = 85 mL/min/1.73 sq.m. Ages 70+ = 75 mL/min/1.73 sq.m. Chronic Kidney Disease: Less than 60 mL/min/1.73 square meters End Stage Renal Disease: Less than 15 mL/min/1.73 square meters Performed By: #### V IDH, CBC, GFR, ANEU, TSH, CMP, ADIFF, LIPID #### [address] [address] GFR 141 ml/min/1.73sqm Normal [facility] ([place]) Comment on above: Result Comment: GFR Population mean for , Non- Americans Ages 20-29 = 116 mL/min/1.73 sq.m. Ages 30-39 = 107 mL/min/1.73 sq.m. Ages 40-49 = 99 mL/min/1.73 sq.m. Ages 50-59 = 93 mL/min/1.73 sq.m. Ages 60-69 = 85 mL/min/1.73 sq.m. Ages 70+ = 75 mL/min/1.73 sq.m. Chronic Kidney Disease: Less than 60 mL/min/1.73 square meters End Stage Renal Disease: Less than 15 mL/min/1.73 square meters Performed By: #### V IDH, CBC, GFR, ANEU, TSH, CMP, ADIFF, LIPID #### [address] [address] .NEUABSon 09-30-2023 Neutrophil, Absolute 3.2 10 3/mcL Normal 2.9-6.2 [facility] ([place]) Comment on above: Performed By: #### V IDH, CBC, GFR, ANEU, TSH, CMP, ADIFF, LIPID #### [address] [address] CBCon 09-30-2023 Erythrocyte distribution width (RBC) [Ratio] 13.0 % Normal 11.5-14.5 [facility] ([place]) Comment on above: Performed By: #### V IDH, CBC, GFR, ANEU, TSH, CMP, ADIFF, LIPID #### [place] [address] Hematocrit (Bld) [Volume fraction] 47.8 % Normal 42.0-52.0 [facility] ([place]) Comment on above: Performed By: #### V IDH, CBC, GFR, ANEU, TSH, CMP, ADIFF, LIPID #### [place] [id number] Hgb 16.9 G/dL Normal 14.0-18.0 [facility] ([place]) Comment on above: Performed By: #### V IDH, CBC, GFR, ANEU, TSH, CMP, ADIFF, LIPID #### [address] [address] MCH (RBC) [Entitic mass] 31.3 pg High 27.0-31.2 [facility] ([place]) Comment on above: Performed By: #### V IDH, CBC, GFR, ANEU, TSH, CMP, ADIFF, LIPID #### [place] [id number] MCHC 35.3 G/dL Normal 31.8-35.4 [facility] ([place]) Comment on above: Performed By: #### V IDH, CBC, GFR, ANEU, TSH, CMP, ADIFF, LIPID #### [place] [id number] MCV (RBC) [Entitic vol] 88.7 fL Normal 80.0-94.0 [facility] ([place]) Comment on above: Performed By: #### V IDH, CBC, GFR, ANEU, TSH, CMP, ADIFF, LIPID #### [address] [id number] Platelet 181 10 3/mcL Normal 130-400 [facility] [place] ([place]) Comment on above: Performed By: #### V IDH, CBC, GFR, ANEU, TSH, CMP, ADIFF, LIPID #### [address] [id number] Platelet mean volume (Bld) [Entitic vol] 9.1 fL Normal 7.4-10.4 [facility] ([place]) Comment on above: Performed By: #### V IDH, CBC, GFR, ANEU, TSH, CMP, ADIFF, LIPID #### [address] [address] RBC 5.39 10 6/mcL Normal 4.04-6.13 [facility] ([place]) Comment on above: Performed By: #### V IDH, CBC, GFR, ANEU, TSH, CMP, ADIFF, LIPID #### [address] [address] WBC 8.3 10 3/mcL Normal 4.6-10.8 [facility] ([place]) Comment on above: Performed By: #### V IDH, CBC, GFR, ANEU, TSH, CMP, ADIFF, LIPID #### [address] [id number] CMPon 09-30-2023 Albumin Level 4.2 G/dL Normal 3.5-5.0 [facility] ([place]) Comment on above: Performed By: #### V IDH, CBC, GFR, ANEU, TSH, CMP, ADIFF, LIPID #### [address] [id number] Albumin/Globulin [Mass ratio] 1.3 {ratio} Normal 1.1-2.5 [facility] ([place]) Comment on above: Performed By: #### V IDH, CBC, GFR, ANEU, TSH, CMP, ADIFF, LIPID #### [address] [address] ALP [Catalytic activity/Vol] 72 U/L Normal 40-135 [facility] ([place]) Comment on above: Performed By: #### V IDH, CBC, GFR, ANEU, TSH, CMP, ADIFF, LIPID #### [address] [address] ALT [Catalytic activity/Vol] 59 U/L Normal 16-63 [facility] ([place]) Comment on above: Performed By: #### V IDH, CBC, GFR, ANEU, TSH, CMP, ADIFF, LIPID #### [address] [address] AST [Catalytic activity/Vol] 26 U/L Normal 10-40 [facility] ([place]) Comment on above: Performed By: #### V IDH, CBC, GFR, ANEU, TSH, CMP, ADIFF, LIPID #### [address] [address] Bili Total 0.7 mg/dL Normal 0.2-1.0 [facility] ([place]) Comment on above: Result Comment: Use of this assay is not recommended for patients undergoing treatment with eltrombopag due to the potential for falsely elevated results. Performed By: #### V IDH, CBC, GFR, ANEU, TSH, CMP, ADIFF, LIPID #### [address] [address] BUN/Creatinine Ratio 21 ratio Normal 7-27 [facility] ([place]) Comment on above: Performed By: #### V IDH, CBC, GFR, ANEU, TSH, CMP, ADIFF, LIPID #### [address] [address] Calcium [Mass/Vol] 9.8 mg/dL Normal 8.4-10.2 [facility] ([place]) Comment on above: Performed By: #### V IDH, CBC, GFR, ANEU, TSH, CMP, ADIFF, LIPID #### [address] [address] Chloride [Moles/Vol] 100 mmol/L Normal 98-107 [facility] ([place]) Comment on above: Performed By: #### V IDH, CBC, GFR, ANEU, TSH, CMP, ADIFF, LIPID #### [address] [address] CO2 [Moles/Vol] 29 mmol/L Normal 22-29 [facility] ([place]) Comment on above: Performed By: #### V IDH, CBC, GFR, ANEU, TSH, CMP, ADIFF, LIPID #### [address] [address] Creatinine [Mass/Vol] 0.75 mg/dL Normal 0.70-1.30 [facility] ([place]) Comment on above: Performed By: #### V IDH, CBC, GFR, ANEU, TSH, CMP, ADIFF, LIPID #### [address] [address] Electrolyte Balance 10.0 mEq/L Normal 4.0-15.0 [facility] ([place]) Comment on above: Performed By: #### V IDH, CBC, GFR, ANEU, TSH, CMP, ADIFF, LIPID #### [address] [address] Globulin 3.2 G/dL Normal [facility] ([place]) Comment on above: Performed By: #### V IDH, CBC, GFR, ANEU, TSH, CMP, ADIFF, LIPID #### [address] [address] Glucose [Mass/Vol] 202 mg/dL High 70-105 [facility] ([place]) Comment on above: Performed By: #### V IDH, CBC, GFR, ANEU, TSH, CMP, ADIFF, LIPID #### [address] [address] Potassium [Moles/Vol] 4.5 mmol/L Normal 3.5-5.1 [facility] ([place]) Comment on above: Performed By: #### V IDH, CBC, GFR, ANEU, TSH, CMP, ADIFF, LIPID #### [address] [address] Sodium [Moles/Vol] 139 mmol/L Normal 136-145 [facility] ([place]) Comment on above: Performed By: #### V IDH, CBC, GFR, ANEU, TSH, CMP, ADIFF, LIPID #### [address] [address] Total Protein 7.4 G/dL Normal 6.4-8.2 [facility] ([place]) Comment on above: Performed By: #### V IDH, CBC, GFR, ANEU, TSH, CMP, ADIFF, LIPID #### [address] [address] Urea nitrogen [Mass/Vol] 16 mg/dL Normal 7-18 [facility] ([place]) Comment on above: Performed By: #### V IDH, CBC, GFR, ANEU, TSH, CMP, ADIFF, LIPID #### [address] [address] LIPIDon 09-30-2023 Cholesterol [Mass/Vol] 215 mg/dL High 0-200 [facility] ([place]) Comment on above: Result Comment: Chol esterol Reference Interval: Less than 200 Desirable 200-239 Borderline high risk 240 and above High risk Performed By: #### V IDH, CBC, GFR, ANEU, TSH, CMP, ADIFF, LIPID #### [address] [address] Cholesterol in HDL [Mass/Vol] 34 mg/dL Low 40-60 [facility] ([place]) Comment on above: Performed By: #### V IDH, CBC, GFR, ANEU, TSH, CMP, ADIFF, LIPID #### [address] [address] LDL Cholesterol Not Valid Normal 0-130 [facility] ([place]) Comment on above: Result Comment: Trig lyceride >400 invalidates the calculated LDL. Performed By: #### V IDH, CBC, GFR, ANEU, TSH, CMP, ADIFF, LIPID #### [address] [address] Triglyceride [Mass/Vol] 612 mg/dL High 0-150 [facility] ([place]) Comment on above: Result Comment: Trig lyceride Reference Interval: Less than 150 Normal 150-199 Borderline high risk 200-499 High risk 500 or higher Very high risk Performed By: #### V IDH, CBC, GFR, ANEU, TSH, CMP, ADIFF, LIPID #### [address] [address] MALBRon 09-30-2023 U Creatinine 102.4 mg/dL Normal 39.0-259.0 [facility] ([place]) Comment on above: Performed By: #### M ALBR #### [address] [address] U Microalb 365 mcg/dL Normal [facility] ([place]) Comment on above: Performed By: #### M ALBR #### [address] [address] U Ratio Alb/Cre 4 mcg/mg Normal 0-30 [facility] ([place]) Comment on above: Performed By: #### M ALBR #### [address] [address] TSHon 09-30-2023 TSH Qn 1.16 m[IU]/L Normal 0.36-3.74 [facility] ([place]) Comment on above: Performed By: #### V IDH, CBC, GFR, ANEU, TSH, CMP, ADIFF, LIPID #### [address] [address] VIDHon 09-30-2023 Vit. D 25-Hydroxy 24.1 ng/mL Normal [facility] ([place]) Comment on above: Result Comment: Inte rpretive Values Based on Total 25(OH) Vitamin D: Deficient <20 ng/mL Insufficient 20 - <30 ng/mL Sufficient 30-100 ng/mL Performed By: #### V IDH, CBC, GFR, ANEU, TSH, CMP, ADIFF, LIPID #### [address] [address] MALBRon 09-16-2023 U Creatinine 102.7 mg/dL Normal 39.0-259.0 [facility] ([place]) Comment on above: Performed By: #### M ALBR #### [address], [place] [address] U Microalb 874 mcg/dL Normal [facility] ([place]) Comment on above: Performed By: #### M ALBR #### [address] [place], [place] [address] U Ratio Alb/Cre 9 mcg/mg Normal 0-30 [facility] ([place]) Comment on above: Performed By: #### M ALBR #### [address] [place], [place] [address] LABORATORYOrdered By: Pernell Rosario on 09-15-2023 Albumin DL <= 20 mg/L (U) [Mass/Vol] 874 mcg/dL Invalid Interpretation Code AO ADM SS Albumin/Creatinine DL <= 20 mg/L (U) [Mass ratio] 9 mcg/mg Invalid Interpretation Code 0 - 30 mcg/mg AO ADM SS Creatinine (U) [Mass/Vol] 102.7 mg/dL Invalid Interpretation Code 39.0 - 259.0 mg/dL AO ADM SS LABORATORYOrdered By: Corey Moeller on 08-20-2022 C. trachomatis DNA SAIRA+probe Ql (Unsp spec) Negative (08/20/22 5:06 PM) Invalid Interpretation Code Negative AH Auto Viro/Sero SS C. trachomatis DNA SAIRA+probe Ql (Unsp spec) C. trachomatis DNA not detected. Specimen is presumptive negative forC. trachomatis.A negative result does not preclude C. trachomatis infection becauseresults depend on adequate specimen collection, absence of inhibitors,and sufficient DNA to be detected. Invalid Interpretation Code See CT Interp N AH Auto Viro/Sero SS N. gonorrhoeae DNA SAIRA+probe Ql (Unsp spec) Negative (08/20/22 5:06 PM) Invalid Interpretation Code Negative AH Auto Viro/Sero SS N. gonorrhoeae DNA SAIRA+probe Ql (Unsp spec) N. gonorrhoeae DNA not detected. Specimen is presumptive negative forN. gonorrhoeae. A negative result does not preclude Neisseria gonorrhoeaeinfection because results depend on adequate specimen collection, absenceof inhibitors, and sufficient DNA to be detected. Invalid Interpretation Code See NG Interp N AH Auto Viro/Sero SS Laboratory - Specimen inform ationOrdered By: Corey Moeller on 08-20-2022 Specimen source Nom (Unsp spec) Urine (08/20/22 5:06 PM) Invalid Interpretation Code AH Auto Viro/Sero SS No Panel Informationon 08-20 Culture Urine No growth at 48 hours. [facility] Work Phone: XR Finger Righton 04-15-2022 XR Finger Right CLINICAL HISTORY: [place] in COMPARISON: None available TECHNIQUE: AP, lateral, and oblique views of the third digit of the right hand FINDINGS: No acute fracture or dislocation. Soft tissues are within normal limits. IMPRESSION: No acute osseous abnormality. Report reported and signed by Tima Del Angel on 04/17/2022 09 Normal [facility] Specialist LABORATORYOrdered By: Debbi Hale on 02-21-2022 Albumin BCP dye [Mass/Vol] 4.2 G/dL Invalid Interpretation Code 3.5 - 5.0 G/dL AO ADM SS Albumin DL <= 20 mg/L (U) [Mass/Vol] 2662 mcg/dL Invalid Interpretation Code AO ADM SS Albumin/Creatinine DL <= 20 mg/L (U) [Mass ratio] 9 mcg/mg Invalid Interpretation Code 0 - 30 mcg/mg AO ADM SS Albumin/Globulin [Mass ratio] 1.2 {ratio} Invalid Interpretation Code 1.1 - 2.5 ratio AO ADM SS ALP [Catalytic activity/Vol] 68 U/L Invalid Interpretation Code 40 - 135 U/L AO ADM SS ALT With P-5'-P [Catalytic activity/Vol] 78 U/L Invalid Interpretation Code 16 - 63 U/L AO ADM SS AST With P-5'-P [Catalytic activity/Vol] 31 U/L Invalid Interpretation Code 10 - 40 U/L AO ADM SS Bilirubin [Mass/Vol] 1.2 mg/dL Invalid Interpretation Code 0.2 - 1.0 mg/dL AO ADM SS Calcium [Mass/Vol] 9.3 mg/dL Invalid Interpretation Code 8.4 - 10.2 mg/dL AO ADM SS Chloride [Moles/Vol] 103 mmol/L Invalid Interpretation Code 98 - 107 mmol/L AO ADM SS Cholesterol [Mass/Vol] 213 mg/dL Invalid Interpretation Code 0 - 200 mg/dL AO ADM SS Cholesterol in HDL [Mass/Vol] 45 mg/dL Invalid Interpretation Code 40 - 60 mg/dL AO ADM SS Cholesterol in LDL [Mass/Vol] 134 mg/dL Invalid Interpretation Code 0 - 130 mg/dL AO ADM SS CO2 [Moles/Vol] 26 mmol/L Invalid Interpretation Code 22 - 29 mmol/L AO ADM SS Creatinine (U) [Mass/Vol] 280.5 mg/dL Invalid Interpretation Code 39.0 - 259.0 mg/dL AO ADM SS Creatinine [Mass/Vol] 0.81 mg/dL Invalid Interpretation Code 0.70 - 1.30 mg/dL AO ADM SS Electrolyte Balance 11.0 mEq/L Invalid Interpretation Code 4.0 - 15.0 mEq/L AO ADM SS Globulin 3.4 G/dL Invalid Interpretation Code AO ADM SS Glucose [Mass/Vol] 189 mg/dL Invalid Interpretation Code 70 - 105 mg/dL AO ADM SS Potassium [Moles/Vol] 3.9 mmol/L Invalid Interpretation Code 3.5 - 5.1 mmol/L AO ADM SS Protein [Mass/Vol] 7.6 G/dL Invalid Interpretation Code 6.4 - 8.2 G/dL AO ADM SS Sodium [Moles/Vol] 140 mmol/L Invalid Interpretation Code 136 - 145 mmol/L AO ADM SS Triglyceride [Mass/Vol] 170 mg/dL Invalid Interpretation Code 0 - 150 mg/dL AO ADM SS TSH Qn 0.53 m[IU]/L Invalid Interpretation Code 0.36 - 3.74 mcIU/mL AO ADM SS Urea nitrogen [Mass/Vol] 17 mg/dL Invalid Interpretation Code 7 - 18 mg/dL AO ADM SS Urea nitrogen/Creatinine [Mass ratio] 21 ratio Invalid Interpretation Code 7 - 27 ratio AO ADM SS Vit. D 25-Hydroxy 21.9 ng/mL Invalid Interpretation Code AO ADM SS LABORATORYOrdered By: SYSTEM SYSTEM on 02-21-2022 C peptide [Mass/Vol] 2.41 ng/mL Invalid Interpretation Code 0.81 - 3.85 ng/mL AH ADM SS GFR 130 ml/min/1.73sqm Invalid Interpretation Code AO Chemistry S GFR Non- 107 ml/min/1.73sqm Invalid Interpretation Code AO Chemistry S Encounters Encounter Date Encounter Type Care Provider Facility Start: 01-06-2025 End: 01-10-2025 ambulatory TIEN ESPINOSA PROPERTY INSUR[employer] CLAIMS EXAMINER-IMPROVEMENT DIRECTOR Facility:[facility] Start: 01-06-2025 End: 01-10-2025 Outreach Lab THADDEUS SARMIENTO MD [facility] Start: 11-20-2024 End: 11-20-2024 ambulatory THADDEUS SARMIENTO MD Facility:[facility] Start: 11-20-2024 End: 11-20-2024 Patient encounter procedure THADDEUS SARMIENTO MD [facility] Start: 03-25-2024 End: 03-26-2024 ambulatory THADDEUS SARMIENTO MD Facility:[facility] Start: 03-25-2024 End: 03-25-2024 Patient encounter procedure THADDEUS SARMIENTO MD [facility] Start: 03-18-2024 End: 03-19-2024 ambulatory THADDEUS SARMIENTO MD Facility:[facility] Start: 09-30-2023 End: 10-01-2023 ambulatory THADDEUS SARMIENTO MD Facility:[facility] Start: 09-15-2023 End: 09-20-2023 ambulatory TIEN ESPINOSA PROP[employer] INSUR[employer] CLAIMS EXAMINER-IMPROVEMENT DIRECTOR Facility:[facility] Start: 09-15-2023 End: 09-19-2023 Outreach Lab TIEN ESPINOSA PROP[employer] INSUR[employer] CLAIMS EXAMINER-IMPROVEMENT DIRECTOR [facility] Start: 08-20-2022 End: 08-24-2022 Outreach Lab MAGGIE HE PROPERTY INSURANCE CLAIMS EXAMINER-IMPROVEMENT DIRECTOR [facility] Start: 02-21-2022 End: 02-21-2022 Patient encounter procedure THADDEUS SARMIENTO MD [facility] Procedures Date Procedure Procedure Detail Performing Clinician Finger structure (palomo dy structure) THADDEUS SARMIENTO MD Comment on above: left index & right 3 rd digit tendon repair Immunizations Immunization Date Immunization Notes Care Provider Fa cility 06-18-2020 tetanus toxoid, reduced diphtheria toxoid, and acellular pertussis vaccine, adsorbed THADDEUS SARMIENTO MD [facility] 01-10-2014 tetanus toxoid, reduced diphtheria toxoid, and acellular pertussis vaccine, adsorbed THADDEUS SARMIENTO MD [facility] Payers Date Payer Category Payer Unknown [id number] 2024 Unknown [id number] 2023 Unknown [id number] 2023 Medicaid [id number] 1984 Unknown [id number] 2.16.8 [id number] 1984 Unknown [id number] 2.16.8 [id number] 1984 Unknown [id number] 2.16.8 [id number] 1984 Unknown [id number] 2.16.8 [id number] 1984 Unknown [id number] 2.16.8 [id number] 1984 Unknown [id number] 2.16.8 [id number] Social History Date Type Detail Facility Start: 12-24-2020 Tobacco smoking status Ex-smoker (fi nding) [facility] Sex Assigned At Male [facility] Sexual Orientation [facility] ospital [facility] Start: 10-17-2019 Sex Male (finding) [facility] Medical Equipment Procedure Code Equipment Code Equipment Original Text Equipment Identifier Dates See Instructions , Insulin Syringes 31G 3/10 cc 6mm. 1 two times daily for insulin administration 1 box with 3 refills., # 1 EA, 3 Refill(s), Pharmacy: [facility] #[id number], 167, cm, 08/17/23 14:10:00 EDT, Height, 74.8, kg, 08/17/23 14:10:00 EDT, Dosing Weight Start: 08-30-2023 See Instructions , 31 g x 5mm pen needles, 1 pen needle three times daily #100 for 30 days and 3 refills E11.65., # 1 EA, 0 Refill(s), Pharmacy: [facility] #[id number], 167, cm, 09/30/23 14:12:00 EST, Height, 77.3, kg, 09/30/23 14:12:00 EST, Dosing Weight Start: 09-30-2023 See Instructions , 31 g x 5mm pen needles, 1 pen needle QID #400 for 90 days and 3 refills E11.65., # 400 EA, 3 Refill(s), Pharmacy: [facility], 167, cm, 10/13/24 16:34:00 EST, Height, 81.3, kg, 10/13/24 16:34:00 EST, Dosing Weight Start: 11-01-2024 See Instructions , 31 g x 5mm pen needles, 1 pen needle QID #400 for 90 days and 3 refills E11.65., # 400 EA, 3 Refill(s), Pharmacy: [facility], 167, cm, 10/13/24 16:34:00 EST, Height, 81.3, kg, 10/13/24 16:34:00 EST, Dosing Weight Start: 11-01-2024 Evaluation + Plan note Note Date & Type Note Facility Evaluation + Plan note Future Appointments Appointment Date:03/12/2022 02:15:00 PM Scheduled Provider:THADDEUS SARMIENTO MD Location[facility] Appointment Type:ENDO [facility] Evaluation + Plan note LaboratoryRadiology Note Date & Type Note Facility Evaluation + Plan note Future Appointments Appointment Date:11/05/2022 03:45:00 PM Scheduled Provider:THADDEUS SARMIENTO MD Location:[facility] Appointment Type:[facility] Future Scheduled TestsThyroid Stimulating Hormone 08/20/22Thyroid Stimulating Hormone 11/05/22Thyroid Stimulating Hormone 01/17/23Free T4 01/17/23Vitamin B12 Level 01/17/23A1C Hemoglobin 11/05/22A1C Hemoglobin 01/17/23Complete Blood Count 08/20/22Complete Blood Count 01/17/23Lipid Profile 11/05/22Lipid Profile 01/17/23Microalbumin Level Urine 11/05/22Thyroid Stimulating Immunoglobulin 11/05/22Vitamin D Level 11/05/22Vitamin D Level 01/17/23Complete Metabolic Panel 08/20/22Complete Metabolic Panel 11/05/22Complete Metabolic Panel 01/17/23anti-Thyroid Peroxidase 11/05/22US Thyroid 08/13/22 [facility] Evaluation + Plan note Laboratory Note Date & Type Note Facility Evaluation + Plan note Future Appointments Appointment Date:09/30/2023 02:15:00 PM Scheduled Provider:THADDEUS SARMIENTO MD Location:[facility] Appointment Type:ENDO OV Appointment Date:12/15/2023 04:00:00 PM Scheduled Provider:TIEN ESPINOSA Location:[facility] Appointment Type:PC OV Future Scheduled TestsUrinalysis 08/17/23Thyroid Stimulating Hormone 08/17/23Thyroid Stimulating Hormone 04/12/23Thyroid Stimulating Hormone 11/05/22Thyroid Stimulating Hormone 01/17/23Free T4 04/12/23Free T4 01/17/23Vitamin B12 Level 01/17/23A1C Hemoglobin 11/05/22A1C Hemoglobin 01/17/23Complete Blood Count 07/15/23Complete Blood Count 04/12/23Complete Blood Count 01/17/23Lipid Profile 07/15/23Lipid Profile 08/17/23Lipid Profile 04/12/23Lipid Profile 11/05/22Lipid Profile 01/17/23Albumin/Creatinine Ratio, Random Urine 08/17/23Microalbumin Level Urine 11/05/22Thyroid Stimulating Immunoglobulin 11/05/22Vitamin D Level 08/17/23Vitamin D Level 04/12/23Vitamin D Level 11/05/22Vitamin D Level 01/17/23Complete Metabolic Panel 07/15/23Complete Metabolic Panel 08/17/23Complete Metabolic Panel 04/12/23Complete Metabolic Panel 11/05/22Complete Metabolic Panel 01/17/23anti-Thyroid Peroxidase 11/05/22 [facility] Evaluation + Plan note Laboratory Note Date & Type Note Facility Evaluation + Plan note Future Appointments Appointment Date:03/30/2024 03:45:00 PM Scheduled Provider: Location[facility] Appointment Type:ENDO Nurse Appointment Date:04/20/2024 04:00:00 PM Scheduled Provider:THADDEUS SARMIENTO MD Location:[facility] Appointment Type:ENDO OV Appointment Date:06/13/2024 04:00:00 PM Scheduled Provider:TIEN ESPINOSA Location:[facility] Appointment Type:PC OV Future Scheduled TestsThyroid Stimulating Hormone 04/12/23Free T4 04/12/23Complete Blood Count 07/15/23Complete Blood Count 04/12/23Lipid Profile 07/15/23Lipid Profile 04/12/23Vitamin D Level 04/12/23Complete Metabolic Panel 07/15/23Complete Metabolic Panel 04/12/23 [facility] Evaluation + Plan note Laboratory Note Date & Type Note Facility Evaluation + Plan note Future Appointments Appointment Date:12/07/2024 04:00:00 PM Scheduled Provider:THADDEUS SARMIENTO MD Location:[facility] Appointment Type:ENDO OV Appointment Date:04/13/2025 04:00:00 PM Scheduled Provider:TIEN ESPINOSA Location:[facility] Appointment Type:PC OV Future Scheduled TestsLipid Profile 08/17/24Albumin/Creatinine Ratio, Random Urine 12/03/24Albumin/Creatinine Ratio, Random Urine 08/17/24Albumin/Creatinine Ratio, Random Urine 10/13/24Complete Metabolic Panel 08/17/24 [facility] Evaluation + Plan note Laboratory Note Date & Type Note Facility Evaluation + Plan note Future Appointments Appointment Date:04/13/2025 04:00:00 PM Scheduled Provider:TIEN ESPINOSA Location:[facility] Appointment Type:PC OV Appointment Date:05/10/2025 04:00:00 PM Scheduled Provider:THADDEUS SARMIENTO MD Location:[facility] Appointment Type:END[facility] OV Diagnostic Tests PendingSalivary Cortisol,MS 01/06/25 Future Scheduled TestsFerritin 05/04/25yroid Stimulating Hormone 05/04/25A1C Hemoglobin 05/04/25Complete Blood Count 05/04/25Lipid Profile 05/04/25Lipid Profile 08/17/24Albumin/Creatinine Ratio, Random Urine 12/03/24Albumin/Creatinine Ratio, Random Urine 05/04/25Albumin/Creatinine Ratio, Random Urine 08/17/24Albumin/Creatinine Ratio, Random Urine 10/13/24Vitamin D Level 05/04/25Complete Metabolic Panel 05/04/25Complete Metabolic Panel 08/17/24 [facility] Hospital course Narrative Note Date & Type Note Facility Hospital course Narrative No data available for this section [facility] Hospital Discharge instructions Note Date & Type Note Facility Hospital Discharge instructions No data available for this section [facility] Progress note Note Date & Type Note Facility Progress note No data available for this section [facility] Summary Purpose Family History No Family History Records Found No data available for this section No data available for this section No Family History Records Found No data available for this section No data available for this section No Family History Records Found Advance Directives No Advanced Directives Records FoundNo Advanced Directives Records FoundNo Advanced Directives Records Found Additional Source Comments Care Team (unrecognized sect ion and content) Personnel Name: MARCUS BATES MD Address: [address] [place] Care Team Personnel Name: TIEN ESPINOSA APRN-IMPROVEMENT DIRECTOR Position: P4 [employer] Straightener Member Role: Primary Care Physician Address: Address: [address] Care Team Related Persons Name: TRISTEN GODWIN Care Team Personnel Name: TIEN ESPINOSA APRN-IMPROVEMENT DIRECTOR Position: P4 [employer] Straightener Member Role: Primary Care Physician Address: Address: [address] Care Team Related Persons Name: TRISTEN GODWIN Care Team Personnel Name: TIEN ESPINOSA APRN-IMPROVEMENT DIRECTOR Position: P4 [employer] Straightener Member Role: Primary Care Physician Address: [address] Telecom: Care Team Related Persons Name: TRISTEN GODWIN Care Team Personnel Name: TIEN ESPINOSA APRN-IMPROVEMENT DIRECTOR Position: P4 [employer] Straightener Member Role: Primary Care Physician Address: [address] Telecom: Care Team Related Persons Name: TRISTEN GODWIN (unrecognized sect ion and content) No Status Records FoundNo Status Records FoundNo Status Records Found INFORMATION SOURCE (unrecogn ized section and content) DATE CREATED AUTHOR 04/18/2022 [facility] dical Specialist DATE CREATED AUTHOR AUTHOR'S ORGANIZ ATION 03/26/2024 [facility] ([place]) DATE CREATED AUTHOR AUTHOR'S ORGANIZ ATION 01/15/2025 [facility] Care Team (unrecognized sect ion and content) Care Team Personnel Name: MARCUS BATES MD Position: P4 Physician - Primary Care Med Service: Active Provider Member Role: Primary Care Physician Address: Address: [address] [place], [place] [address] [place] [address] Care Team Related Persons Name: TRISTEN GODWIN Name: JOANNA, BRENDYN R Address: Home [address] [place], [place] [id number] FOR RECORDS PERTAINING TO PATIENTS WHO ARE OR HAVE BEEN ENROLLED IN A CHEMICAL DEPENDENCY/SUBSTANCEABUSE PROGRAM, SOME INFORMATION MAY BE OMITTED. This clinical summary was aggregated from multiple sources. Caution should be exercised in using it in the provision of clinical care. This summary normalizes information from multiple sources, and as a consequence, information in this document may materially change the coding, format and clinical context of patient data. In addition, data may be omitted in some cases. CLINICAL DECISIONS SHOULD BE BASED ON THE PRIMARY CLINICAL RECORDS. [facility]. provides no warranty or guarantee of the accuracy or completeness of information in this document.
[2025-06-02 09:32] LABS: Hematocrit 47.2 % (40-54); Hemoglobin 17.3 g/dL (13.0-16.5); Mean Corp Hgb Conc 36.7 g/dL (32-36); Mean Corpuscular Volume 86.9 fL (80-94); Mean Platelet Vol. 10.0 fl (6.2-12.0); Platelet Count 176 K/mm3 (150-450); RBC Distribution Width CV 12.2 % (11.6-14.6); RBC Distribution Width SD 38.6 fl (35.1-43.9); Red Blood Count 5.43 M/mm3 (4.6-6.2); White Blood Count 8.1 K/mm3 (4.4-11.0)
[2025-06-02 09:46] LABS: Creatinine, Urine (random) 264.00 mg/dL (39.00-259.00); Microalbumin,Random Urine 12.1 mg/L (NO RANGE EST.)
[2025-06-02 11:05] LABS: AST(SGOT) 37 U/L (<=37); Alanine Aminotransfer ALT/SGPT 52 U/L (<=46); Albumin, Serum 4.3 g/dL (3.5-5.0); Alkaline Phosphatase 79 U/L (40-129); Anion Gap 11 (5-15); BUN 16 mg/dL (4-19); BUN/Creat Ratio 18.6 RATIO (10-20); Calcium,Total 9.3 mg/dL (7.6-11.0); Carbon Dioxide 23.6 mmol/L (21.0-32.0); Chloride 105 mmol/L (98-108); Cholesterol 164 mg/dL (<=200); Ferritin 416 ng/mL (37-417); Globulin 3.0 g/dL (2.2-4.2); Glucose 167 mg/dL (70-99); Low Density Lipoprotein Calc. 86 mg/dL; Potassium 4.4 mmol/L (3.3-5.1); Triglycerides 197 mg/dL; Very Low Density Lipoprotein 39 mg/dL (5-40); cholesterol:hdl ratio screen 4.21
[2025-06-02 13:06] LABS: Vitamin D,25 Hydroxy 44.2 ng/mL (30-100)
== END | disposition home or self-care (01) ==
PROVIDERS: Referring Provider Internal Medicine Endocrinology, Diabetes & Metabolism; Visit Provider Internal Medicine Endocrinology, Diabetes & Metabolism
DX: E11.9 Type 2 diabetes mellitus without complications (principal); E78.5 Hyperlipidemia, unspecified; R74.01 Elevation of levels of liver transaminase levels; E55.9 Vitamin D deficiency, unspecified
CPT/HCPCS: 36415; 80053; 80061; 82043; 82306; 82570; 82728; 83036; 84443; 85027

== ENCOUNTER → 2025-07-13 | Outpatient (CLI) | payer OTHER, SELFPAY ==
[2025-07-13 11:20] LABS: Hematocrit 46.9 % (40-54); Hemoglobin 16.9 g/dL (13.0-16.5); Mean Corp Hgb Conc 36.0 g/dL (32-36); Mean Corpuscular Volume 86.9 fL (80-94); Mean Platelet Vol. 10.4 fl (6.2-12.0); Platelet Count 160 K/mm3 (150-450); RBC Distribution Width CV 12.0 % (11.6-14.6); RBC Distribution Width SD 38.5 fl (35.1-43.9); Red Blood Count 5.40 M/mm3 (4.6-6.2); White Blood Count 6.9 K/mm3 (4.4-11.0)
[2025-07-13 11:47] LABS: Creatinine, Urine (random) 168.00 mg/dL (39.00-259.00); Microalbumin,Random Urine < 12.0 mg/L (<20 mg/L); Protein, Urine (Random) 11.8 mg/dL (0.0-12.0)
[2025-07-13 12:26] LABS: AST(SGOT) 37 U/L (<=37); Alanine Aminotransfer ALT/SGPT 61 U/L (<=46); Albumin, Serum 4.5 g/dL (3.5-5.0); Alkaline Phosphatase 69 U/L (40-129); Anion Gap 15 (5-15); BUN 12 mg/dL (4-19); BUN/Creat Ratio 17.8 RATIO (10-20); Calcium,Total 9.1 mg/dL (7.6-11.0); Carbon Dioxide 20.1 mmol/L (21.0-32.0); Chloride 103 mmol/L (98-108); Ferritin 383 ng/mL (37-417); Globulin 2.7 g/dL (2.2-4.2); Glucose 144 mg/dL (70-99); Iron 116 ug/dL (65-175); Iron Binding Capacity,Total 270 ug/dL (250-450); Iron Binding Capacity,Unsat 154 ug/dL (228-428); Potassium 4.1 mmol/L (3.3-5.1)
[2025-07-17 14:08] LABS: GGTP 29 IU/L (0-65); Transferrin 236 mg/dL (177-329)
== END | disposition home or self-care (01) ==
LOC: LAB 10:31
PROVIDERS: PCP Registered Nurse; Referring Provider Internal Medicine Endocrinology, Diabetes & Metabolism; Visit Provider Internal Medicine Endocrinology, Diabetes & Metabolism
DX: E11.9 Type 2 diabetes mellitus without complications (principal); D75.1 Secondary polycythemia
CPT/HCPCS: 36415; 80053; 81270; 82043; 82570; 82668; 82728; 82977; 83540; 83550; 84156; 84466; 85027

== ENCOUNTER → 2025-11-21 | Outpatient (CLI) | payer OTHER, SELFPAY ==
[2025-11-21 09:52] LABS: Hematocrit 46.8 % (40-54); Hemoglobin 17.0 g/dL (13.0-16.5); Mean Corp Hgb Conc 36.3 g/dL (32-36); Mean Corpuscular Volume 84.8 fL (80-94); Mean Platelet Vol. 10.8 fl (6.2-12.0); Platelet Count 155 K/mm3 (150-450); RBC Distribution Width CV 11.9 % (11.6-14.6); RBC Distribution Width SD 36.3 fl (35.1-43.9); Red Blood Count 5.52 M/mm3 (4.6-6.2); White Blood Count 6.6 K/mm3 (4.4-11.0)
[2025-11-21 10:35] LABS: AST(SGOT) 53 U/L (<=37); Alanine Aminotransfer ALT/SGPT 88 U/L (<=46); Albumin, Serum 4.4 g/dL (3.5-5.0); Alkaline Phosphatase 69 U/L (40-129); Anion Gap 12 (7-18); BUN 18 mg/dL (4-19); BUN/Creat Ratio 26.2 RATIO (10-20); Calcium,Total 9.4 mg/dL (7.6-11.0); Carbon Dioxide 24.4 mmol/L (20.0-29.0); Chloride 99 mmol/L (96-106); Cholesterol 195 mg/dL (<=200); Globulin 2.9 g/dL (2.2-4.2); Glucose 231 mg/dL (70-99); Low Density Lipoprotein Calc. 117 mg/dL; Potassium 4.2 mmol/L (3.5-5.1); Triglycerides 227 mg/dL; Very Low Density Lipoprotein 45 mg/dL (5-40); Vitamin D,25 Hydroxy 35.5 ng/mL (30-100); cholesterol:hdl ratio screen 5.06
== END | disposition home or self-care (01) ==
LOC: LAB 08:32
PROVIDERS: PCP Registered Nurse; Referring Provider Internal Medicine Endocrinology, Diabetes & Metabolism; Visit Provider Internal Medicine Endocrinology, Diabetes & Metabolism
DX: E11.9 Type 2 diabetes mellitus without complications (principal); E78.5 Hyperlipidemia, unspecified; R74.01 Elevation of levels of liver transaminase levels; E83.19 Other disorders of iron metabolism
CPT/HCPCS: 36415; 80053; 80061; 82306; 83036; 84443; 85027